=== PATIENT | male | born 1955 | race Caucasian/White ===

== ENCOUNTER 2017-05-28 18:22 | Emergency (ER) | payer OTHER ==
[2017-05-28 18:33] VITALS: BP 160/99
--- NOTE | 2017-05-28 19:15 | EDM.PDOC ---
ED HPI GENERAL MEDICAL PROBLEM - General Chief Complaint: Head Injury Stated Complaint: LEFT ANKLE AND HEAD INJURY Time Seen by Provider: 05/28/17 18:57 Source of Information: Reports: Patient History Limitations: Reports: No Limitations - History of Present Illness INITIAL COMMENTS - FREE TEXT/NARRATIVE: 61 year old male presents for evaluation and treatment of injuries sustained fall. Reportedly the fall occurred around 1630 today. Patient was at the [facility] health [facility] in [place]. Reports that he stepped backwards and rolled his ankle. He then fell backwards and hit the back of his head and neck on a tree. He states that he did not lose consciousness. His was present feels like he may have lost consciousness. She reports afterwards he had trouble remembering the event and exhibited repetitive questioning. He denies any current nausea, vomiting, blurry vision, double vision, nosebleeds, chest pain, shortness of breath, abdominal pain,or lightheadedness. No syncopal episodes since the event. He is reporting some minor neck discomfort and a minor headache at the base of the skull. Patient also reports he felt "foggy " After the event. Patient is also complaining of pain to the left ankle. He states he was originally not able to walk due to the dizziness. He does not feel that it is broken. Pain to the medial and lateral ankle. No swelling, bruising, numbness or tingling. Patient is not on any aspirin or any blood thinners. Onset: Today, Sudden Location: Reports: Head, Neck, Lower Extremity, Left (left ankle) - Related Data Allergies Allergy/AdvReac Type Severity Reaction Status Date / Time No Known Allergies Allergy Verified 05/28/17 18:32 Home Meds: Home Meds . [No Known Home Meds] 05/28/17 [History] Past Medical History Dermatologic History: Reports: Melanoma - Past Surgical History Dermatological Surgical History: Reports: Skin Biopsy, Skin Graft Social & Family History - Tobacco Use Smoking Status *Q: Never Smoker - Caffeine Use Caffeine Use: Reports: None - Recreational Drug Use Recreational Drug Use: No ED ROS GENERAL - Review of Systems Review Of Systems: See Below Constitutional: Reports: Malaise HEENT: Denies: Nosebleed, Vision Change Respiratory: Denies: Shortness of Breath Cardiovascular: Denies: Chest Pain GI/Abdominal: Denies: Abdominal Pain, Nausea, Vomiting Musculoskeletal: Reports: Neck Pain, Leg Pain (left ankle) Skin: Denies: Wound, Lumps Neurological: Reports: Dizziness, Headache, Difficulty Walking (due to dizziness ), Other ( reports repetative questioning ; patinet reports feeling "fuzzy"). Denies: Seizure, Syncope (patient denies; feels he likely lost consciousness) ED EXAM, HEAD INJURY - Physical Exam Exam: See Below Exam Limited By: No Limitations General Appearance: Alert, WD/WN, No Apparent Distress, Other (orientated to person, place and time) Head: Atraumatic, Normocephalic Nexus Criteria: No: Posterior, Midline Cervical Tenderness, Evidence of Intoxication, Altered Level of Consciousness, Focal Neurological Deficit, Painful Distraction Injuries Eyes: Bilateral Eye: EOMI, PERRL Ears: Normal External Exam, Normal Canal, Hearing Grossly Normal, Normal TMs Nose: Normal Inspection, No Blood Throat/Mouth: Normal Inspection, Normal Lips, Normal Voice, No Airway Compromise Neck: Non-Tender, Full Range of Motion, Normal Alignment, Normal Inspection Respiratory: No Respiratory Distress, Lungs Clear, Normal Breath Sounds Cardiovascular: Normal Peripheral Pulses, Regular Rate, Rhythm, No Murmur Extremities: No Evidence of Injury, Pain with Movement Neurologic: spacer type bar and segment II-XII nml As Tested, No Motor/Sensory Deficits, Alert, Normal Mood/Affect, Oriented x 3, Other (normal heel to glynn testing, normal finger to nose testing) Skin: Normal Color, Warm/Dry - Champ Coma Score Best Eye Response ([place]): (4) Open Spontaneously Best Verbal Response ([place]): (5) Oriented Best Motor Response ([place]): (6) Obeys Commands Course - Vital Signs Last Recorded V/S: Last Vital Signs Temp 36.8 C 05/28/17 18:30 Pulse 72 05/28/17 18:30 Resp 16 05/28/17 18:30 BP 160/99 H 05/28/17 18:30 Pulse Ox 95 05/28/17 18:30 - Radiology Interpretation Free Text/Narrative:: head CT without contrast impression per Dr. Christine: 1. Incidental findings. No acute intracranial abnormality is identified on noncontrast head CT study. Cervical spine without contrast impression per Dr. Christine 1. Mild scattered degenerative change. 2. No acute fracture or acute subluxation is seen within the cervical spine. CT Results Date: 05/28/17 - Re-Assessments/Exams Free Text/Narrative Re-Assessment/Exam: 05/28/17 20:[address] results with the patient. Patient reports he is feeling much better at this time. Dizziness and fogginess are resolving. Feels comfortable going home at this time. Discharge instructions as documented. Departure - Departure Time of Disposition: 20:02 Disposition: Home, Self-Care 01 Condition: Good Clinical Impression: Concussion injury of brain - Discharge Information Instructions: Concussion, Adult, [id number] Referrals: PCP,None [Primary Care Provider] - Forms: ED Department Discharge Additional Instructions: Go home and rest. [id number] Tylenol or Motrin as needed for pain relief. Try to reduce brain stimulating activities such as reading, computer, texting, phone, computer, etc. try to limit these activities over the next 3 days. Follow-up with your primary care provider if your symptoms are not much better within the next 3 days. Please return to the ER if your symptoms change or worsen.
--- NOTE | 2017-05-28 19:45 | CT ---
Head CT Technique: Multiple axial sections through the brain were obtained. Intravenous contrast was not utilized. Comparison: No previous intracranial imaging is available. Findings: 2 low density areas are noted within the right basal ganglia. These are most likely due to old lacunar infarcts. No other abnormal parenchymal densities are seen. No evidence of intracranial hemorrhage. No midline shift or mass effect is seen. Ventricles along with basal cisterns and sulci over the convexities are within normal limits. Bone window settings were reviewed which shows a rounded soft tissue density compatible with retention cyst within the right maxillary sinus measuring 1.3 cm. Slight mucosal thickening is noted within the right maxillary sinus which is felt to be incidental. Minimal areas of mucosal thickening are seen within the anterior ethmoid sinuses also felt to be incidental. No acute calvarial abnormality is appreciated. Impression: 1. Incidental findings as described above. No acute intracranial abnormality is identified on noncontrast head CT study. Diagnostic code #2
--- NOTE | 2017-05-28 19:47 | CT ---
CT cervical spine Technique: Multiple axial sections were obtained from above C1 inferiorly to the top of T2. Reconstructed sagittal and coronal images were reviewed. Comparison: No previous cervical spine imaging. Findings: Visualized mastoid sinuses and middle ear cavities are clear. Posterior skull base is intact. Anterior osteophytes are seen at C3-C4, C4-C5, C5-C6 and C6-C7. Slight posterior osteophytes are noted at C4-C5. Mild degenerative change is also noted between the dens and anterior arch of C1. No fracture is identified. No bony central or bony neural foraminal stenosis is seen. No abnormal subluxation is seen. Slight degenerative change within the uncovertebral joints is noted most prominent at C4-C5. Impression: 1. Mild scattered degenerative change. 2. No acute fracture or acute subluxation is seen within the cervical spine. Diagnostic code #2 Diagnostic code #2
== END 2017-05-28 20:10 | disposition home or self-care (01) ==
LOC: JD.ED 18:22
DX: S06.0X0A Concussion without loss of consciousness, initial encounter (principal); W01.10XA Fall on same level from slipping, tripping and stumbling with subsequent striking against unspecified object, initial encounter
CPT/HCPCS: 70450; 70450-26; 72125; 72125-26; 99284; 99284-25